=== PATIENT | male | born 1990 | race Two or more races ===

== ENCOUNTER 2019-09-10 09:00 | Inpatient (IN) | payer MEDICAID ==
[~2019-09-10] VITALS: Ht 170.2 cm; Wt 61.2 kg
[2019-09-10 09:42] LABS: Basophils # (auto) 0.2 uL; Basophils % (auto) 2.3 % (0.0-2.0); Eosinophils # (auto) 0 uL; Hematocrit 41.5 % (41.0-53.0); Hemoglobin 14.1 g/dL (13.5-17.5); Lymphocytes # (auto) 0.9 uL; Lymphocytes % (auto) 8.2 % (10.0-50.0); Mean Corpuscular Hemoglobin 31.1 pg (28.0-32.0); Mean Corpuscular Volume 91.4 fL (80.0-100.0); Monocytes # (auto) 0.9 uL; Monocytes % (auto) 8.2 % (0.0-12.0); Neutrophils # (auto) 8.8 uL; Neutrophils % (auto) 81.3 % (37.0-80.0); Nucleated Red Blood Cells % 0.1 %; Platelet Count (auto) 204 10^3/uL (140-450); Red Blood Cells 4.54 10^6/uL (4.5-5.90); Red Cell Distribution Width 15.9 % (11.8-14.3); White Blood Cell 10.9 10^3/uL (4.4-10.8)
[2019-09-10 09:58] LABS: Albumin 4.9 g/dL (3.4-5.0); Calcium 9.4 mg/dL (8.5-10.1)
[2019-09-10 10:02] LABS: BUN/Creatinine Ratio 10.6; Bilirubin, Total 3.4 mg/dL (0.2-1.0); Total Protein 9.6 g/dL (6.4-8.2)
[2019-09-10 10:03] LABS: Potassium 2.8 mmol/L (3.5-5.1)
[2019-09-10] MEDS ORDERED: POTASSIUM EFFERVESENT TAB 25 MEQ PO ONE (10:15)
[2019-09-10] MEDS ORDERED: LORazepam 2MG/ML-1ML VIAL ONE (10:58)
[2019-09-10] MEDS ORDERED: POTASSIUM CHLORIDE 40 MEQ, LIDOCAINE 1% (LOCAL ANESTH.) 4 ML in SODIUM CHL 0.9% 100 ML IV ONE (11:15)
[2019-09-10] MEDS ORDERED: ONDANSETRON HCL 4 MG/2 ML VIAL IV PRN (12:00)
[2019-09-10] MEDS ORDERED: ALUM & MAG HYDROX-SIMETH LIQ(MAALOX) 30 ML PO PRN (12:00)
[2019-09-10] MEDS ORDERED: LORazepam 2MG/ML-1ML VIAL IV ONE (12:00)
[2019-09-10] MEDS ORDERED: NITROGLYCERIN 0.4 MG SL TAB SL PRN (12:00)
[2019-09-10] MEDS ORDERED: DOCUSATE SOD 100 MG CAP PO PRN (12:00)
[2019-09-10] MEDS ORDERED: MORPHINE SULF INJ 2 MG/ML SYRINGE 1ML IV PRN (12:00)
[2019-09-10] MEDS ORDERED: HYDROcodone-ACET 5/325MG TAB PO PRN (12:00)
--- NOTE | 2019-09-10 14:20 | NUR ---
PT IN FOWLERS, AWAKE, ALERT, ORIENTEDx4 DENIES ANY DISCOMFORT AT MOMENT. FOLLOWS COMMANDS. RECEPTIVE OF CARE. EFFORTLESS BREATHING ON ROOM AIR 02SAT: 97% IV PATENT TO RIGHT HAND#18 PT ORIENTED TO ROOM ENVIRONMENT, BED LOCKED AND IN LOWEST POSITION, CALL LIGHT WITHIN REACH. WILL CONTINUE TO MONITOR.
[2019-09-10 14:30] VITALS: BP 117/72
[2019-09-10] MEDS: SOD CHL 0.9%/ KCL 40MEQ 1,000 ML IV SCH ×2 (14:33→22:00)
[2019-09-10] MEDS: MAGNESIUM SULFATE 1GM/100ML 100 ML IV SCH ×4 (14:33→18:19)
[2019-09-10 17:31] VITALS: BP 114/61
[2019-09-10] MEDS ORDERED: MAGNESIUM SULFATE 1GM/100ML 100 ML IV ONE (18:18)
--- NOTE | 2019-09-10 19:00 | NUR ---
OPENING NOTE Received report from day shift RN. Patient is A&O X's 4 with no s/s of distress and reports no pain at this moment. Educated patient on POC and to use call light when in need of assistance. Patient verbalized understanding. Bed is in lowest/locked position with side rails up X's 2 and call light is within reach of patient. Will continue care and round hourly/PRN.
[2019-09-10 20:59] LABS: Urine Bacteria NONE SEEN /hpf (None Seen); Urine Blood Negative /uL (Negative); Urine Mucus FEW (None Seen); Urine Specific Gravity 1.015 (1.001-1.035); Urine WBC 1 /hpf (0 - 3)
[2019-09-10 21:10] LABS: Alcohol, Urine < 3.0 mg/dL (0-5); Amphetamine Screen, Urine NEGATIVE (NEGATIVE); Barbiturate Scree,Urine NEGATIVE (NEGATIVE); Benzodiazephine Screen, Urine NEGATIVE (NEGATIVE); Cannabinoid Screen, Urine POSITIVE (NEGATIVE); Cocaine Screen, Urine NEGATIVE (NEGATIVE); Phencyclidine Screen, Urine NEGATIVE (NEGATIVE)
[2019-09-10 21:17] LABS: Opiate Scree,Urine NEGATIVE (NEGATIVE)
[2019-09-10 21:39] VITALS: BP 118/67
[2019-09-11 04:57] VITALS: BP 106/73
[2019-09-11] MEDS ORDERED: INFLUENZA QUAD 2019-2020 0.5ml SYRG IM ONE (05:00)
[2019-09-11 05:11] LABS: Basophils # (auto) 0 uL; Basophils % (auto) 0.1 % (0.0-2.0); Eosinophils # (auto) 0 uL; Eosinophils % (auto) 0.1 % (0.0-7.0); Hematocrit 35.8 % (41.0-53.0); Hemoglobin 12.1 g/dL (13.5-17.5); Lymphocytes # (auto) 0.8 uL; Lymphocytes % (auto) 8.1 % (10.0-50.0); Mean Corpuscular Hemoglobin 31.3 pg (28.0-32.0); Mean Corpuscular Hgb Conc. 33.8 g/dL (32.0-36.0); Mean Corpuscular Volume 92.5 fL (80.0-100.0); Monocytes # (auto) 0.6 uL; Monocytes % (auto) 5.7 % (0.0-12.0); Neutrophils # (auto) 8.4 uL; Platelet Count (auto) 135 10^3/uL (140-450); Red Blood Cells 3.87 10^6/uL (4.5-5.90); Red Cell Distribution Width 15.6 % (11.8-14.3); White Blood Cell 9.8 10^3/uL (4.4-10.8)
[2019-09-11 05:48] LABS: Cholesterol 201 mg/dL (< 200); Triglycerides 156 mg/dL (< 150)
[2019-09-11 05:50] LABS: HDL Cholesterol 46 mg/dL (40-59); LDL Cholesterol 135 mg/dL (< 100)
[2019-09-11 06:11] LABS: Albumin 3.4 g/dL (3.4-5.0); BUN/Creatinine Ratio 16.4; Calcium 7.6 mg/dL (8.5-10.1); Magnesium 2.9 mg/dL (1.6-2.6); Potassium 3.1 mmol/L (3.5-5.1)
[2019-09-11 06:26] LABS: Bilirubin, Total 2.9 mg/dL (0.2-1.0); Phosphorus 1.9 mg/dL (2.5-4.90); Total Protein 6.7 g/dL (6.4-8.2)
--- NOTE | 2019-09-11 07:05 | NUR ---
Opening Shift Note Assumed care of patient, awake and alert. No S/S of distress/SOB or pain. Instructed on POC and to call for assist PRN, will continue to monitor for changes Q1hr and PRN.
[2019-09-11] MEDS: SOD CHL 0.9%/ KCL 40MEQ 1,000 ML IV SCH ×2 (08:46→16:53)
[2019-09-11 09:00] VITALS: BP 113/63
[2019-09-11 12:30] VITALS: BP 109/64
--- NOTE | 2019-09-11 13:45 | NUR ---
AT BEDSIDE JING BELTRÁN FOR PATIENT TO SHOWER.
--- NOTE | 2019-09-11 13:45 | NUR ---
ULTRASOUND CALLED PATIENT IS TO BE NPO FOR 8 HOURS. WILL DO ULTRASOUND TONIGHT.
[2019-09-11] MEDS ORDERED: MULTIPLE VITAMINS W/ MINERALS TAB PO ONE (14:15)
[2019-09-11] MEDS ORDERED: THIAMINE HCL 100 MG TAB PO ONE (14:15)
[2019-09-11 17:00] VITALS: BP_SYST 115; BP_SYST 128; BP_SYST 131; BP_DIAS 62; BP_DIAS 66
--- NOTE | 2019-09-11 17:31 | NUR ---
ORTHOSTATIC VITALS SITTING: TEMP 98.7, HR 65, RR 18, O2 98% RA, BP 128/62 STANDING : TEMP 98.5, HR 69, RR 18, O2 98% RA, BP 115/66 LAYING DOWN: TEMP 98.5, HR 64, RR 18, O2 97% RA, BP 131/66
--- NOTE | 2019-09-11 19:30 | NUR ---
OPENING NOTE Received report from day shift RN. Patient is A&O X's 4 with no s/s of distress and reports no pain at this moment. Mother is at bed side. Educated patient on POC and to use call light when in need of assistance. Patient verbalized understanding. Call light is within reach of patient. Will continue care and round hourly/PRN.
[2019-09-11 21:37] VITALS: BP 119/82
--- NOTE | 2019-09-11 22:44 | NUR ---
LIVER US STILL PENDING ATTEMPTED TO CALL US DEPT FOR ESTIMATED TIME OF US, HOWEVER NO ANSWER. PATIENT STATES, "I WAS TOLD THEY WOULD BE HERE AROUND 8 NH 9 PM, IM TOO HUNGRY NOW AND IF THEY DON'T COME IN AN HOUR I WILL EAT." PATIENT ADVISED TO HOLD NPO STATUS UNTIL US DEPT REACHED. PATIENT STATES HE WILL WAIT AN HOUR MAX.
--- NOTE | 2019-09-11 22:56 | NUR ---
US TECH AT BED SIDE
--- NOTE | 2019-09-12 02:28 | NUR ---
PATIENT C/O HEART BURN, WILL MEDICATE PER ORDER, AND RE ASSESS.
[2019-09-12 05:00] VITALS: BP 139/65
[2019-09-12 06:27] LABS: Basophils # (auto) 0 uL; Basophils % (auto) 0.2 % (0.0-2.0); Eosinophils # (auto) 0 uL; Eosinophils % (auto) 0.6 % (0.0-7.0); Hematocrit 37.5 % (41.0-53.0); Hemoglobin 12.7 g/dL (13.5-17.5); Lymphocytes # (auto) 1.4 uL; Lymphocytes % (auto) 19.3 % (10.0-50.0); Mean Corpuscular Hemoglobin 31.6 pg (28.0-32.0); Mean Corpuscular Hgb Conc. 33.8 g/dL (32.0-36.0); Mean Corpuscular Volume 93.5 fL (80.0-100.0); Monocytes # (auto) 0.7 uL; Monocytes % (auto) 8.9 % (0.0-12.0); Neutrophils # (auto) 5.3 uL; Nucleated Red Blood Cells % 0.1 %; Platelet Count (auto) 137 10^3/uL (140-450); Red Blood Cells 4.01 10^6/uL (4.5-5.90); Red Cell Distribution Width 15.7 % (11.8-14.3); White Blood Cell 7.4 10^3/uL (4.4-10.8)
[2019-09-12] MEDS: SOD CHL 0.9%/ KCL 40MEQ 1,000 ML IV SCH ×2 (06:47→23:35)
[2019-09-12 06:52] LABS: Albumin 3.8 g/dL (3.4-5.0); BUN/Creatinine Ratio 10.4; Calcium 8.8 mg/dL (8.5-10.1); Magnesium 2.6 mg/dL (1.6-2.6); Potassium 3.3 mmol/L (3.5-5.1); Total Protein 7.5 g/dL (6.4-8.2)
--- NOTE | 2019-09-12 07:30 | NUR ---
Opening Shift Note Assumed care of patient, awake, alert, and oriented x4. No S/S of distress/SOB or pain. IV is in the right wrist 18 gauge is asymptomatic, intact, patent, and infusing normal saline with 40 MeQ of potassium @ 60 mL/hour. Bed is locked and in lowest position and call light is within reach. Instructed on POC and to call for assist PRN, and patient verbalized understanding. Will continue to monitor for changes Q1hr and PRN.
[2019-09-12 08:48] VITALS: BP 132/80
[2019-09-12] MEDS: THIAMINE HCL 100 MG TAB PO SCH (10:00)
[2019-09-12] MEDS: MULTIPLE VITAMINS W/ MINERALS TAB PO SCH (10:00)
--- NOTE | 2019-09-12 12:08 | NUR ---
Dr. Duncan, Hospitalist, gave permission for patient to shower.
[2019-09-12 12:30] VITALS: BP 135/73
[2019-09-12] MEDS ORDERED: POTASSIUM CHL 20 Meq TABLET PO ONE (12:45)
--- NOTE | 2019-09-12 13:07 | NUR ---
IV removal IV DC'd with clean sterile technique, catheter fully intact. Pressure dressing applied to site. Patient tolerated well.
--- NOTE | 2019-09-12 16:30 | NUR ---
Dr. Crawford, Neurologist, at bedside. New orders received.
--- NOTE | 2019-09-12 16:43 | NUR ---
IV insertion IV access obtained, via clean sterile technique by inserting 20 gauge catheter at left forearm after 1 attempt. IV secured properly. No trauma to site. Patient tolerated well.
[2019-09-12] MEDS ORDERED: LORazepam 2MG/ML-1ML VIAL IV PRN (16:45)
[2019-09-12 17:21] VITALS: BP 139/89
--- NOTE | 2019-09-12 19:23 | NUR ---
OPENING SHIFT NOTE PATIENT VISIBLY AGITATED/ANXIOUS. PATIENT PULLED OUT IV AND STATES HE IS LEAVING, PATIENT KEEPS PACING DOWN HALLS, OTHER UNIT RN ALSO NOTIFIES TO CALL SECURITY DUE TO MR PERRIN ENTERING OTHER PATIENTS ROOM AND HARASSING RN. PATIENT STATES, "THEY ARE COMING FOR ME! I HEARD THEM FROM MY WINDOW TELLING ME THEY ARE GOING TO SHOOT ME, AND THAT'S WHY I'M SCARED". IMMEDIATE ATTEMPT TO CALM PATIENT DOWN INITIATED BY CHARGE NURSE, AND ADDITIONAL RNS, SECURITY AT BED SIDE WELL. PATIENT CONTINUES TO SHOW AGITATION. AFTER MULTIPLE ATTEMPTS, PATIENT STATES HE WILL STAY AND TRY TO RELAX. WILL START NEW IV. WILL CONTINUE TO CLOSELY MONITOR.
--- NOTE | 2019-09-12 19:40 | NUR ---
IV insertion IV access obtained, via clean sterile technique by inserting 22 gauge catheter at RIGHT FOREARM after 1 attempt. IV secured properly. No trauma to site. Patient tolerated well.
--- NOTE | 2019-09-12 21:50 | NUR ---
PATIENTS HR AT 160S-170BPM UNIT RN ENTERED PATIENTS ROOM, PATIENT IN RESTROOM, WHEN RN KNOCKED ON DOOR PATIENT CAME OUT AGGRESSIVELY, AND CONTINUES TO STATE "THEY ARE OUTSIDE MY WINDOW AND THEY ARE GOING TO SHOOT ME, I CAN HEAR THEM OUT THERE AND THEY THREW SOMETHING AT MY WINDOW" PER RN HE SAW PATIENT REACH INTO HIS BACKPACK. CHARGE NURSE AND SECURITY NOTIFIED.
--- NOTE | 2019-09-12 21:53 | NUR ---
CHARGE NURSE, SECURITY, AND ADDITIONAL STAFF AT BED SIDE. PATIENT AGREES TO BELONGING SEARCH. HR NOW AT 140S BPM AT REST WILL PAGE HOSPITALIST
[2019-09-12 22:00] VITALS: BP 130/72
--- NOTE | 2019-09-12 22:00 | NUR ---
HOSPITALIST PAGED REGARDING PATIENTS AGITATION/ PARANOIA/ ELEVATED HR OF 160BPM
--- NOTE | 2019-09-12 22:40 | NUR ---
HOSPITALIST AWARE OF PATIENTS CONTINUOUS AGITATION STATUS. NEW ORDERS RECEIVED, READ BACK AND VERIFIED. WILL ENTER AND IMPLEMENT ORDERS.
--- NOTE | 2019-09-13 00:55 | NUR ---
CARE ENDORSED TO JACINTA ARIAS
--- NOTE | 2019-09-13 00:57 | NUR ---
Patient's HR increased to 140s. Patient found to be in bathroom on assessment. He denited chest pain or any distress. Patient took off heart monitor afterwards. Will place leads back on.
[2019-09-13] MEDS ORDERED: chlordiazePOXIDE HCL 25 MG CAP PO SCH (02:00)
[2019-09-13 05:52] VITALS: BP 128/79
[2019-09-13] MEDS: LORazepam 2MG/ML-1ML VIAL IV PRN (06:40)
[2019-09-13 07:00] LABS: Albumin 4.1 g/dL (3.4-5.0); Potassium 3.6 mmol/L (3.5-5.1)
[2019-09-13 07:01] LABS: BUN/Creatinine Ratio 12.3
[2019-09-13 07:16] LABS: Bilirubin, Total 1.4 mg/dL (0.2-1.0); Total Protein 8.4 g/dL (6.4-8.2)
[2019-09-13 09:00] VITALS: BP 123/89
[2019-09-13 10:13] LABS: Hepatitis B Surface Antibody Positive
[2019-09-13] MEDS: SOD CHL 0.9%/ KCL 40MEQ 1,000 ML IV SCH ×2 (10:28→18:45)
[2019-09-13] MEDS: THIAMINE HCL 100 MG TAB PO SCH (10:28)
[2019-09-13] MEDS: MULTIPLE VITAMINS W/ MINERALS TAB PO SCH (10:28)
[2019-09-13] MEDS: SERTRALINE HCL 50 MG TAB PO SCH (10:28)
--- NOTE | 2019-09-13 10:50 | NUR ---
PT TAKEN TO MRI, TRANSPORTED VIA WHEELCHAIR. NO DISTRESS AT MOMENT.
[2019-09-13 10:51] LABS: Hepatitis A Total Antibody Positive
[2019-09-13 11:19] LABS: Hepatitis B Surface Antigen Negative (Negative); Hepatitis C Antibody Negative (Negative)
[2019-09-13 11:20] LABS: Hepatitis B Core Total AB Negative; Hepatitis B Surface Antigen Negative (Negative); Hepatitis C Antibody Negative (Negative)
--- NOTE | 2019-09-13 11:30 | NUR ---
PT BACK IN UNIT, IV FLUIDS RESUMED PER ORDER. NO DISTRESS AT MOMENT. EXPLAINED TO PT TO CALL FOR ANY ASSISTANCE.
--- NOTE | 2019-09-13 11:53 | NUR ---
Nutrition Assessment Notes please see attached link for complete assessment Est. Needs BW [id number] kcal (25-30 kcal/kgBW), 59-70 gms pro (1.0-1.2 gms/kgBW). Will continue to monitor pertinent labs and reassess nutrient need prn Addendum: 09/13/19 at [address] Amended: Links added.
[2019-09-13 13:00] VITALS: BP 115/70
--- NOTE | 2019-09-13 13:30 | NUR ---
EEG COMPLETED AT BEDSIDE. HUGO GARCIA.
--- NOTE | 2019-09-13 15:50 | NUR ---
URINE SPECIMEN COLLECTED; SENT TO LAB
--- NOTE | 2019-09-13 16:01 | NUR ---
PT FOUND SEVERAL TIMES NOW DISCONNECTING IV CATHETER, PT EDUCATED ON RISKS OF INFECTION WHEN HANDLING IV CATHETER. INSTRUCTED PT ON CALLING RN FOR ASSISTANCE WITH IV.
[2019-09-13 17:00] VITALS: BP 123/73
--- NOTE | 2019-09-13 19:16 | NUR ---
Opening Shift Note Assumed care of patient, awake and alert. No S/S of distress/SOB or pain. Instructed on POC and to call for assist PRN, will continue to monitor for changes Q1hr and PRN. Side rails up x2. Bed locked in lowest position. Call light within reach. Mother at bedside.
[2019-09-13 21:00] VITALS: BP 135/77
[2019-09-13] MEDS: TEMAZEPAM 15 MG CAP PO PRN (21:14)
--- NOTE | 2019-09-14 03:19 | NUR ---
Patient ran out of his room scared verbalizing "There is someone outside the window planning an attack on me" Reassured patient his safety and reoriented patient back to his bed. Administered ordered Ativan 1mg IV.
[2019-09-14] MEDS: LORazepam 2MG/ML-1ML VIAL IV PRN ×2 (03:33→18:22)
--- NOTE | 2019-09-14 04:02 | NUR ---
Rounds Patient in bed asleep with no signs of distress/sob/pain.
[2019-09-14 04:30] VITALS: BP 122/64
[2019-09-14 06:06] LABS: RPR Non Reactive (Non Reactive)
--- NOTE | 2019-09-14 07:32 | NUR ---
Endorsed care to day shift RN.
--- NOTE | 2019-09-14 08:00 | NUR ---
IV FLUIDS RESUMED, PT FOUND TO DISCONNECT FROM IV SELF. PT INSTRUCTED ON CALLING RN FOR ASSISTANCE.
[2019-09-14 08:08] LABS: Albumin 3.8 g/dL (3.4-5.0); BUN/Creatinine Ratio 14.1; Calcium 8.9 mg/dL (8.5-10.1); Potassium 4.1 mmol/L (3.5-5.1)
[2019-09-14 08:10] LABS: Bilirubin, Total 1.2 mg/dL (0.2-1.0); Total Protein 7.2 g/dL (6.4-8.2)
[2019-09-14 08:26] VITALS: BP 133/77
[2019-09-14] MEDS: SOD CHL 0.9%/ KCL 40MEQ 1,000 ML IV SCH (08:44)
[2019-09-14] MEDS: MULTIPLE VITAMINS W/ MINERALS TAB PO SCH (08:55)
[2019-09-14] MEDS: THIAMINE HCL 100 MG TAB PO SCH (08:56)
[2019-09-14] MEDS: SERTRALINE HCL 50 MG TAB PO SCH (08:56)
--- NOTE | 2019-09-14 10:45 | NUR ---
DR. SANDERS IN TO SEE PT. MADE AWARE OF CK LEVELS TODAY. MD MADE AWARE OF PT'S PACING AND ANXIETY. PATIENT WALKS OFF UNIT TO SMOKE, AMA SIGNED. PT ADVISED ON RISKS OF BEHAVIOR. REPORTS "I HAVE QUIT DRINKING, BUT NOT READY TO QUIT SMOKING YET"
[2019-09-14 13:00] VITALS: BP 137/79
--- NOTE | 2019-09-14 13:59 | NUR ---
URINE SPECIMEN COLLECTED, SENT TO LAB.
[2019-09-14 14:38] LABS: Alcohol, Urine < 3.0 mg/dL (0-5); Amphetamine Screen, Urine NEGATIVE (NEGATIVE); Barbiturate Scree,Urine NEGATIVE (NEGATIVE); Benzodiazephine Screen, Urine NEGATIVE (NEGATIVE); Cannabinoid Screen, Urine POSITIVE (NEGATIVE); Cocaine Screen, Urine NEGATIVE (NEGATIVE); Opiate Scree,Urine NEGATIVE (NEGATIVE); Phencyclidine Screen, Urine NEGATIVE (NEGATIVE)
[2019-09-14] MEDS: SODIUM CHLORIDE 0.9% 1,000 ML IV SCH ×2 (14:39→23:30)
--- NOTE | 2019-09-14 16:56 | NUR ---
Assessment Pt is a 29 year old alert and oriented male. Prior to admit, pt lived with mom and dad, was ambulatory and independent with ADLs. Pt admitted after having "mini-seizure, vomiting, and blacking out." Pt stated that he quit "cold turkey" 3 weeks ago from heavy alcohol use and stated that he thinks that his symptoms have to do with that. Pt stated that he is done with alcohol and is going to look into treatment programs when he gets out. SW offered community resources for substance abuse tx in the [facility] but pt declined stating that he already knows of some. Pt states that he has good family support and motivation to quit. Pt currently employed and needs a doctors note to show his employer. SW directed pt to his nurse. Pt stated that a family member will pick him up for d/c. No interest in AD. Pt plans to d/c home upon medical clearance. No other needs or concerns expressed. Addendum: 09/14/19 at 1703 by NISHA DAS Amended: Links added.
[2019-09-14 18:02] VITALS: BP 140/82
[2019-09-14] MEDS: chlordiazePOXIDE HCL 25 MG CAP PO PRN (19:37)
[2019-09-14] MEDS: TEMAZEPAM 15 MG CAP PO PRN (20:32)
[2019-09-14 22:00] VITALS: BP 125/61
[2019-09-15] MEDS: chlordiazePOXIDE HCL 25 MG CAP PO PRN (01:31)
[2019-09-15 05:00] VITALS: BP 119/75
[2019-09-15 06:19] LABS: Albumin 3.9 g/dL (3.4-5.0)
[2019-09-15 06:38] LABS: Bilirubin, Direct 0.4 mg/dL (0-0.2); Bilirubin, Total 1.2 mg/dL (0.2-1.0); Total Protein 7.5 g/dL (6.4-8.2)
--- NOTE | 2019-09-15 07:30 | NUR ---
Opening Shift Note Assumed care of patient, awake and alert. No S/S of distress/SOB or pain. Instructed on POC and to call for assist PRN, will continue to monitor for changes Q1hr and PRN. Bed locked in lowest position with two side rails up and call light in reach.
[2019-09-15 08:24] VITALS: BP 99/57
[2019-09-15] MEDS: THIAMINE HCL 100 MG TAB PO SCH (09:27)
[2019-09-15] MEDS: SERTRALINE HCL 50 MG TAB PO SCH ×2 (09:27→12:12)
[2019-09-15] MEDS: SODIUM CHLORIDE 0.9% 1,000 ML IV SCH (09:27)
[2019-09-15] MEDS: MULTIPLE VITAMINS W/ MINERALS TAB PO SCH (09:27)
[2019-09-15] MEDS ORDERED: IOHEXOL 300 MG/ML 100ML BOTTLE IJ ONE (12:04)
[2019-09-15] MEDS ORDERED: SERT50TA PO (12:12)
[2019-09-15 13:16] VITALS: BP 121/70
[2019-09-15 16:37] VITALS: BP 135/74
--- NOTE | 2019-09-15 16:54 | NUR ---
PAGED DR SANDERS AND RECEIVED CALL BACK. NOTIFIED DR SANDERS OF CT RESULTS THAT WERE PENDING. PER DR SANDERS IT IS OK TO SEND PATIENT HOME AND HAVE PATIENT FOLLOW UP WITH PRIMARY CARE PROVIDER, ALSO WANTS PATIENT TO BE PROVIDED A COPY OF THE CT RESULT FOR THE PRIMARY CARE PROVIDER.
--- NOTE | 2019-09-15 18:03 | NUR ---
Discharge instructions given as ordered. Encourage to follow up with PMD as instructed. All questions and concerns addressed. Patient verbalized understanding. Medication reconciliation form completed and copy given to patient. No Home medications held in Pharmacy and none to be returned to patient, and no needed vaccines given. IV removed with catheter intact, pressure dressing applied. Telemetry unit returned to ICU. Patient ambulated to vehicle via with all personal belongings, accompanied by staff and family member. No distress noted at time of departure.
== END 2019-09-15 18:00 | disposition home or self-care (01) | DRG 280 ==
LOC: EDBD 09:00 → ER 09:00 → TELE 09:01 → TELE-WESTW 13:41
PROVIDERS: ADMIT Hospitalist; ATTEND Internal Medicine
DX: K70.9 Alcoholic liver disease, unspecified (principal); N17.0 Acute kidney failure with tubular necrosis; G93.41 Metabolic encephalopathy; R56.9 Unspecified convulsions; R65.10 Systemic inflammatory response syndrome (SIRS) of non-infectious origin without acute organ dysfunction; M62.82 Rhabdomyolysis; F12.10 Cannabis abuse, uncomplicated; F10.10 Alcohol abuse, uncomplicated; E87.6 Hypokalemia; E78.5 Hyperlipidemia, unspecified; F17.210 Nicotine dependence, cigarettes, uncomplicated; F41.9 Anxiety disorder, unspecified; K76.0 Fatty (change of) liver, not elsewhere classified; Z79.899 Other long term (current) drug therapy; Z80.3 Family history of malignant neoplasm of breast; Z83.3 Family history of diabetes mellitus; Z71.6 Tobacco abuse counseling; Z71.41 Alcohol abuse counseling and surveillance of alcoholic
CPT/HCPCS: 36415; 70450; 70491; 70551; 76705; 80053; 80061; 80076; 80307; 81001; 82085; 82550; 83036; 83735; 84100; 84146; 84484; 85025; 86592; 86704; 86706; 86708; 86803; 87340; 93306; 95819; 96365; 96367; G0378; J2001

== ENCOUNTER 2021-04-28 20:54 | Emergency (ER) | payer MEDICAID ==
[~2021-04-28] VITALS: Ht 170.2 cm; Wt 61.2 kg
[~2021-04-28 20:54] MED LIST: SERT50TA PO
[2021-04-29 03:45] VITALS: BP 109/64
== END 2021-04-29 07:45 | disposition home or self-care (01) ==
LOC: ER 20:58
DX: S90.31XA Contusion of right foot, initial encounter (principal); Z91.013 Allergy to seafood; Z79.899 Other long term (current) drug therapy; W22.8XXA Striking against or struck by other objects, initial encounter; Y93.89 Activity, other specified; Y92.89 Other specified places as the place of occurrence of the external cause; Y99.8 Other external cause status
CPT/HCPCS: 73620

== ENCOUNTER 2021-06-05 10:26 | Inpatient (IN) | payer MEDICAID ==
[~2021-06-05] VITALS: Ht 170.2 cm; Wt 56.0 kg
[2021-06-05] MEDS ORDERED: SODIUM CHLORIDE 0.9% 1,000 ML IVB ONE (10:45)
[2021-06-05] MEDS ORDERED: PROCHLORPERAZINE EDISYLATE 5 MG/ML 2ML VIAL IV ONE (10:45)
[2021-06-05] MEDS ORDERED: PANTOPRAZOLE 40 MG/10 ML VIAL INJ IV ONE (10:45)
[2021-06-05 11:05] LABS: Basophils # (auto) 0 10 ^3/uL (0-0.2); Eosinophils # (auto) 0 10 ^3/uL (0-0.8); Hematocrit 39.7 % (41.0-53.0); Hemoglobin 13.8 g/dL (13.5-17.5); Lymphocytes # (auto) 0.7 10 ^3/uL (0.4-5.4); Lymphocytes % (auto) 9.4 % (10.0-50.0); Mean Corpuscular Hemoglobin 32.2 pg (28.0-32.0); Mean Corpuscular Hgb Conc. 34.7 g/dL (32.0-36.0); Mean Corpuscular Volume 92.7 fL (80.0-100.0); Monocytes # (auto) 0.6 10 ^3/uL (0-1.3); Monocytes % (auto) 8.3 % (0.0-12.0); Neutrophils # (auto) 6.3 10 ^3/uL (1.6-8.6); Neutrophils % (auto) 82.3 % (37.0-80.0); Red Blood Cells 4.28 10^6/uL (4.5-5.90); Red Cell Distribution Width 15.3 % (11.8-14.3); White Blood Cell 7.6 10^3/uL (4.4-10.8)
[2021-06-05 11:27] LABS: Anion Gap 17 (5-15); Blood Urea Nitrogen 28 mg/dL (7-18); Calcium 10.1 mg/dL (8.5-10.1); Carbon Dioxide 28 mmol/L (21-32); Chloride 79 mmol/L (98-107); Lipase 254 U/L (73-393); Magnesium 2.3 mg/dL (1.6-2.6); Sodium 124 mmol/L (136-145)
[2021-06-05 11:35] LABS: Alanine Aminotransferase 206 U/L (16-61); Alkaline Phosphatase 262 U/L (45-117); Amylase 89 U/L (25-115); Aspartate Aminotransferase 315 U/L (15-37); Bilirubin, Total 3.9 mg/dL (0.2-1.0); GFR African American 86 mL/min; GFR Non-African American 71 mL/min; Glucose 114 mg/dL (74-106)
[2021-06-05] MEDS ORDERED: POTASSIUM CHL 20MEQ/100ML 100 ML IV ONE (11:45)
[2021-06-05] MEDS: SODIUM CHLORIDE 0.9% 1,000 ML IV SCH (12:15)
[2021-06-05] MEDS ORDERED: LORazepam 2MG/ML-1ML VIAL IV PRN (12:15)
[2021-06-05] MEDS ORDERED: NITROGLYCERIN 0.4 MG SL TAB SL PRN (12:15)
[2021-06-05] MEDS ORDERED: ONDANSETRON HCL 4 MG/2 ML VIAL IV PRN (12:15)
[2021-06-05] MEDS ORDERED: MORPHINE SULFATE INJECTION 2 MG/ML SYRG IV PRN (12:15)
[2021-06-05 14:10] VITALS: BP 133/72
[2021-06-05] MEDS: FOLIC ACID 1 MG, MULTIPLE VITAMIN 10 ML, MAGNESIUM SULF SDV 50% 8 MEQ, THIAMINE INJ 100... INJ SCH ×5 (14:43)
[2021-06-05 15:15] VITALS: BP 133/72
[2021-06-05 17:00] VITALS: BP 121/64
[2021-06-05] MEDS: SUCRALFATE 1 GM/10 ML ORAL SUSP PO SCH ×2 (17:29→22:00)
[2021-06-05 21:51] VITALS: BP 130/58
[2021-06-05] MEDS: PANTOPRAZOLE 40 MG/10 ML VIAL INJ IV SCH (22:00)
[2021-06-06] MEDS: SODIUM CHLORIDE 0.9% 1,000 ML IV SCH ×2 (01:35→14:55)
[2021-06-06 05:00] VITALS: BP 113/64
[2021-06-06 05:43] LABS: Basophils # (auto) 0 10 ^3/uL (0-0.2); Basophils % (auto) 0.2 % (0.0-2.0); Eosinophils # (auto) 0 10 ^3/uL (0-0.8); Eosinophils % (auto) 1.1 % (0.0-7.0); Hematocrit 33.8 % (41.0-53.0); Hemoglobin 11.6 g/dL (13.5-17.5); Lymphocytes # (auto) 0.7 10 ^3/uL (0.4-5.4); Lymphocytes % (auto) 17.8 % (10.0-50.0); Mean Corpuscular Hemoglobin 32.1 pg (28.0-32.0); Mean Corpuscular Hgb Conc. 34.5 g/dL (32.0-36.0); Mean Corpuscular Volume 93.3 fL (80.0-100.0); Monocytes # (auto) 0.4 10 ^3/uL (0-1.3); Monocytes % (auto) 8.6 % (0.0-12.0); Neutrophils % (auto) 72.3 % (37.0-80.0); Red Blood Cells 3.62 10^6/uL (4.5-5.90); Red Cell Distribution Width 14.9 % (11.8-14.3); White Blood Cell 4.2 10^3/uL (4.4-10.8)
[2021-06-06 06:34] LABS: Albumin 3.6 g/dL (3.4-5.0); BUN/Creatinine Ratio 21.1; Bilirubin, Total 3.1 mg/dL (0.2-1.0); Calcium 8.4 mg/dL (8.5-10.1); Total Protein 6.8 g/dL (6.4-8.2)
[2021-06-06] MEDS: SUCRALFATE 1 GM/10 ML ORAL SUSP PO SCH ×4 (07:00→22:23)
[2021-06-06 07:55] VITALS: BP 111/61
[2021-06-06 08:14] LABS: Potassium 2.6 mmol/L (3.5-5.1)
[2021-06-06] MEDS ORDERED: POTASSIUM EFFERVESENT TAB 25 MEQ PO ONE (08:30)
[2021-06-06 08:35] VITALS: BP 111/61
[2021-06-06] MEDS: PANTOPRAZOLE 40 MG/10 ML VIAL INJ IV SCH ×2 (08:37→22:23)
[2021-06-06] MEDS ORDERED: POTASSIUM CHL 20 Meq TABLET PO ONE (10:30)
[2021-06-06 12:51] VITALS: BP 115/74
[2021-06-06] MEDS: FOLIC ACID 1 MG, MULTIPLE VITAMIN 10 ML, MAGNESIUM SULF SDV 50% 8 MEQ, THIAMINE INJ 100... INJ SCH ×5 (13:42)
[2021-06-06] MEDS: MORPHINE SULFATE INJECTION 2 MG/ML SYRG IV PRN ×2 (13:44→20:06)
[2021-06-06 17:17] VITALS: BP 111/66
[2021-06-06 22:00] VITALS: BP 123/72
[2021-06-07] MEDS: SODIUM CHLORIDE 0.9% 1,000 ML IV SCH (04:15)
[2021-06-07 05:00] VITALS: BP 128/84
[2021-06-07 05:12] LABS: Alcohol, Urine < 3.0 mg/dL (0-10); Amphetamine Screen, Urine NEGATIVE (NEGATIVE); Barbiturate Scree,Urine NEGATIVE (NEGATIVE); Benzodiazephine Screen, Urine NEGATIVE (NEGATIVE); Cannabinoid Screen, Urine POSITIVE (NEGATIVE); Cocaine Screen, Urine NEGATIVE (NEGATIVE); Opiate Scree,Urine NEGATIVE (NEGATIVE); Phencyclidine Screen, Urine NEGATIVE (NEGATIVE)
[2021-06-07 05:17] LABS: Urine Bacteria NONE SEEN /hpf (None Seen); Urine Blood Negative /uL (Negative); Urine Specific Gravity 1.006 (1.001-1.035); Urine WBC <1 /hpf (0 - 3)
[2021-06-07] MEDS: SUCRALFATE 1 GM/10 ML ORAL SUSP PO SCH (06:28)
[2021-06-07 08:38] VITALS: BP 130/77
[2021-06-07 14:38] LABS: Hepatitis A Ab IgM Negative; Hepatitis B Core IgM Negative; Hepatitis B Surface Antigen Negative (Negative); Hepatitis C Antibody Negative (Negative)
== END 2021-06-07 08:20 | disposition left against medical advice (07) | DRG 241 ==
LOC: ER 10:26 → TELE 12:10 → TELE-WESTW 14:07
PROVIDERS: ADMIT Nurse Practitioner Acute Care; ATTEND Internal Medicine Nephrology
DX: K29.71 Gastritis, unspecified, with bleeding (principal); K72.00 Acute and subacute hepatic failure without coma; N17.9 Acute kidney failure, unspecified; D69.6 Thrombocytopenia, unspecified; E87.1 Hypo-osmolality and hyponatremia; K21.9 Gastro-esophageal reflux disease without esophagitis; Z20.822 Contact with and (suspected) exposure to COVID-19; E86.0 Dehydration; E80.6 Other disorders of bilirubin metabolism; Y90.9 Presence of alcohol in blood, level not specified; Z53.29 Procedure and treatment not carried out because of patient's decision for other reasons; R74.8 Abnormal levels of other serum enzymes; F10.20 Alcohol dependence, uncomplicated; K74.60 Unspecified cirrhosis of liver; E87.6 Hypokalemia; K57.30 Diverticulosis of large intestine without perforation or abscess without bleeding; F12.10 Cannabis abuse, uncomplicated; F17.210 Nicotine dependence, cigarettes, uncomplicated; Z80.3 Family history of malignant neoplasm of breast; Z88.2 Allergy status to sulfonamides; Z79.899 Other long term (current) drug therapy
CPT/HCPCS: 36415; 74176; 76705; 80053; 80074; 80307; 81001; 82150; 83690; 83735; 84132; 84484; 85025; 87426; 93005; 96361; 96365; 96366; 96375; C9113; G0378; J3480

== ENCOUNTER 2023-03-05 12:14 | Emergency (ER) | payer MEDICAID ==
[~2023-03-05] VITALS: Ht 170.2 cm; Wt 61.3 kg
[2023-03-05 12:56] VITALS: BP 139/80
[2023-03-05] MEDS ORDERED: CEPH-510 PO (15:09)
[2023-03-05] MEDS ORDERED: IBUP600T27 PO (15:09)
== END 2023-03-05 15:51 | disposition home or self-care (01) ==
LOC: ER 12:14
DX: S82.51XA Displaced fracture of medial malleolus of right tibia, initial encounter for closed fracture (principal); S83.8X1A Sprain of other specified parts of right knee, initial encounter; S63.92XA Sprain of unspecified part of left wrist and hand, initial encounter; S80.212A Abrasion, left knee, initial encounter; S80.211A Abrasion, right knee, initial encounter; W01.0XXA Fall on same level from slipping, tripping and stumbling without subsequent striking against object, initial encounter; Y93.89 Activity, other specified; Y92.89 Other specified places as the place of occurrence of the external cause; Y99.8 Other external cause status
CPT/HCPCS: 29515; 73130; 73562; 73610

== ENCOUNTER 2023-05-27 12:35 | Emergency (ER) | payer MEDICAID ==
[~2023-05-27] VITALS: Ht 170.2 cm; Wt 165.7 kg
[~2023-05-27 12:35] MED LIST changes: +CEPH-510 PO; +IBUP-1454 PO; -SERT50TA PO
[2023-05-27] MEDS ORDERED: MORPHINE SULFATE 4 MG/ML SYR/VIAL IV ONE (13:00)
[2023-05-27] MEDS ORDERED: SODIUM CHLORIDE 0.9% 1,000 ML IVB ONE (13:00)
[2023-05-27] MEDS ORDERED: PANTOPRAZOLE 40 MG/10 ML VIAL INJ IV ONE (13:00)
[2023-05-27] MEDS ORDERED: PROCHLORPERAZINE EDISYLATE 5 MG/ML 2ML VIAL IV ONE (13:00)
[2023-05-27 13:29] LABS: Basophils # (auto) 0 10 ^3/uL (0-0.2); Basophils % (auto) 0.2 % (0.0-2.0); Eosinophils # (auto) 0 10 ^3/uL (0-0.8); Hematocrit 44.2 % (41.0-53.0); Hemoglobin 14.7 g/dL (13.5-17.5); Lymphocytes # (auto) 0.4 10 ^3/uL (0.4-5.4); Lymphocytes % (auto) 2.9 % (10.0-50.0); Mean Corpuscular Hemoglobin 30.6 pg (28.0-32.0); Mean Corpuscular Hgb Conc. 33.4 g/dL (32.0-36.0); Mean Corpuscular Volume 91.7 fL (80.0-100.0); Monocytes # (auto) 0.3 10 ^3/uL (0-1.3); Monocytes % (auto) 2.6 % (0.0-12.0); Neutrophils # (auto) 11.5 10 ^3/uL (1.6-8.6); Neutrophils % (auto) 94.3 % (37.0-80.0); Red Blood Cells 4.81 10^6/uL (4.5-5.90); Red Cell Distribution Width 13.5 % (11.8-14.3); White Blood Cell 12.2 10^3/uL (4.4-10.8)
[2023-05-27 13:46] LABS: Albumin 3.9 g/dL (3.4-5.0); Calcium 9.3 mg/dL (8.5-10.1); Potassium 3.8 mmol/L (3.5-5.1)
[2023-05-27 13:51] LABS: BUN/Creatinine Ratio 10.5 (10.0-20.0); Bilirubin, Total 0.6 mg/dL (0.2-1.0); Total Protein 7.2 g/dL (6.4-8.2)
[2023-05-27] MEDS ORDERED: ZOFR4T PO (14:45)
[2023-05-27] MEDS ORDERED: PANT40TA2 PO (14:45)
[2023-05-27 15:02] LABS: Alcohol, Urine < 3.0 mg/dL (0-10); Amphetamine Screen, Urine NEGATIVE (NEGATIVE); Barbiturate Scree,Urine NEGATIVE (NEGATIVE); Benzodiazephine Screen, Urine NEGATIVE (NEGATIVE); Cannabinoid Screen, Urine POSITIVE (NEGATIVE); Cocaine Screen, Urine NEGATIVE (NEGATIVE); Phencyclidine Screen, Urine NEGATIVE (NEGATIVE)
[2023-05-27 15:10] LABS: Opiate Scree,Urine POSITIVE (NEGATIVE)
[2023-05-27 15:11] VITALS: BP 109/72
== END 2023-05-27 15:13 | disposition home or self-care (01) ==
LOC: ER 12:35
DX: R11.10 Vomiting, unspecified (principal); F17.210 Nicotine dependence, cigarettes, uncomplicated; F12.90 Cannabis use, unspecified, uncomplicated; F10.90 Alcohol use, unspecified, uncomplicated; Z79.899 Other long term (current) drug therapy; Z91.013 Allergy to seafood
CPT/HCPCS: 36415; 74176; 80053; 80307; 83690; 85025; 96361; 96374; 96375; 99285; C9113; J0780; J2270; J7030

== ENCOUNTER 2023-12-05 10:42 | Emergency (ER) | payer MEDICAID ==
[~2023-12-05] VITALS: Ht 170.2 cm; Wt 63.8 kg
[~2023-12-05 10:42] MED LIST changes: +PANT40TA2 PO; +ZOFR4T PO
[2023-12-05] MEDS ORDERED: CEPH500C PO (13:09)
[2023-12-05] MEDS ORDERED: NAPR-746 PO (13:09)
[2023-12-05 13:13] VITALS: BP 118/74; PULSE 75; RESP 16; TEMP 99.3; O2SAT 99
== END 2023-12-05 13:26 | disposition home or self-care (01) ==
LOC: ER 10:42
DX: M27.40 Unspecified cyst of jaw (principal); F17.210 Nicotine dependence, cigarettes, uncomplicated; Z91.013 Allergy to seafood; Z79.1 Long term (current) use of non-steroidal anti-inflammatories (NSAID); Z79.899 Other long term (current) drug therapy